=== PATIENT | male | born 1995 | race Caucasian/White ===

== ENCOUNTER 2022-11-29 13:30 | Outpatient (AMB) | payer MEDICAID, SELFPAY ==
--- NOTE | 2022-11-29 15:14 | MHC.OFFWIV ---
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 Patient is reporting symptoms of fatigue, diarrhea and vomiting for the past few days. Symptoms started after eating at a fast food joint. No other family member is sick. PFSH Social History Patient Tobacco Use Status: Never used Tobacco Physical Exam Vital Signs: Last Vital Signs Temp 98.0 F 11/29/22 15:16 Pulse 86 11/29/22 15:16 BP 120/72 11/29/22 15:16 Pulse Ox 99 11/29/22 15:16 Oxygen Delivery Method Room Air 11/29/22 15:16 BMI result Body Mass Index 21.1 Const General: cooperative and healthy appearing Nutritional Appearance: well nourished Orientation/consciousness: patient oriented x3 Limitations: no limitations HEENT Other: Bilateral partially corrected cleft lip repair Head: Yes normal to inspection Eyes General: appearance normal, both eyes and all related structures Neck Neck: Yes normal visual inspection Chest Chest palpation & inspection: normal palpation of entire chest wall Resp Effort & Inspection: normal respiratory effort Neuro General: patient oriented x3 Assessment & Plan Assessment & Plan (1) Gastroenteritis: Code(s): K52.9 - Noninfective gastroenteritis and colitis, unspecified Plan: Self-limiting illness. Note for work given. Coding Level of Care Code Est Pt Level 3 (69848) Diagnoses Gastroenteritis K52.9
[2022-11-29 15:16] VITALS: BP 120/72; PULSE 86; TEMP 36.7; O2SAT 99; BMI 21.1
== END 2022-11-29 15:49 | disposition home or self-care (01) ==
PROVIDERS: PCP Internal Medicine; Visit Provider Internal Medicine
DX: K52.9 Noninfective gastroenteritis and colitis, unspecified (principal)
CPT/HCPCS: 99213